=== PATIENT | male | born 1990 | race African-American/Black ===

== ENCOUNTER 2019-11-14 15:13 | Emergency (ER) | payer BC, OTHER ==
[~2019-11-14] VITALS: Ht 195.6 cm; Wt 154.2 kg
[2019-11-14] MEDS ORDERED: PROMETH-CODEIN 65 ML PO (16:36)
[2019-11-14 17:23] VITALS: BP 190/79
== END 2019-11-14 17:29 | disposition home or self-care (01) ==
LOC: ER 15:13
DX: J11.1 Influenza due to unidentified influenza virus with other respiratory manifestations (principal)